=== PATIENT | female | born 1965 | race Caucasian/White ===

== ENCOUNTER 2016-06-24 15:22 | Emergency (ER) | payer BC ==
[2016-06-24 16:56] VITALS: BP 158/89
--- NOTE | 2016-06-24 17:05 | UC ---
Complaint Female HPI - History Of Current Complaint Chief Complaint: UCGU Stated Complaint: URINARY Time Seen by Provider: 06/24/16 16:57 Hx Obtained From: Patient Hx Last Menstrual Period: 2mos. ?: No Onset/Duration: Sudden Onset, Lasting Days - 2, Worse Since - today Severity Initially: Mild Severity Currently: Moderate Character: Cramping Aggravating Factor(s): Urination Associated Signs And Symptoms: Negative: Fever, Nausea, Vomiting(# Of Episodes = ) - Risk Factors Ovarian Torsion Risk Factor: Negative - Allergies/Home Medications Allergies/Adverse Reactions: Allergies Allergy/AdvReac Type Severity Reaction Status Date / Time Erythromycin Allergy Rash Verified 06/24/16 16:56 Indomethacin [From Indocin] Allergy Swelling Verified 06/24/16 16:56 seasonal Allergy Congestion Uncoded 06/24/16 16:56 PMH/Surg Hx/FS Hx/Imm Hx Cardiovascular History Of: Reports: Hypertension - Surgical History Surgical History: Yes Surgery Procedure, Year, and Place: leg veins - Family History Known Family History: Positive: Cardiac Disease, Hypertension, Other - shingles in father, phlebitis in father - Social History Occupation: Employed Full-time Lives: With Family Alcohol Use: Occasionally Substance Use Type: None Smoking Status (MU): Never Smoked Tobacco Have You Smoked in the Last Year: No Review of Systems Constitutional: Chills Gastrointestinal: Abdominal Pain Genitourinary: Dysuria, Frequency, Urgency All Other Systems Reviewed And Are Negative: Yes Physical Exam Triage Information Reviewed: Yes Appearance: No Pain Distress, Well-Nourished, Ill-Appearing Vital Signs: Initial Vital Signs Temp 99.0 F 06/24/16 16:49 Pulse 54 06/24/16 16:49 Resp 18 06/24/16 16:49 BP 158/89 06/24/16 16:49 Pulse Ox 100 06/24/16 16:49 Vital Signs Reviewed: Yes Eyes: Positive: Conjunctiva Clear ENT: Positive: Pharynx normal, TMs normal Neck exam: Normal Respiratory Exam: Normal Cardiovascular Exam: Normal Abdomen Description: Negative: Nontender - mild suprapubic tenderness, CVA Tenderness (R), CVA Tenderness (L) Bowel Sounds: Positive: Present Musculoskeletal Exam: Normal Neurological Exam: Normal Psychological Exam: Normal Skin Exam: Normal Complaint Female Dx - Differential Dx/Diagnosis Differential Diagnosis/HQI/PQRI: Appendicitis, Ovarian Cyst, Urinary Tract Infection Provider Diagnoses: Acute Pyelonephritis Discharge - Discharge Plan Condition: Stable Disposition: HOME Prescriptions: Phenazopyridine HCl [Pyridium] 200 mg PO TID PRN #6 tab PRN Reason: UTI symptoms Sulfamethox/Trimethoprim DS* [Bactrim DS 800/160 TAB*] 1 tab PO BID #20 tab Patient Education Materials: Acute Pyelonephritis (ED), Urinary Tract Infection in Women (ED), Sulfamethoxazole/Trimethoprim (By mouth), Phenazopyridine (By mouth) Additional Instructions: Stackpop[employer] SINUS RINSE: CHECK OUT AT nScaled Saline nasal wash helps with mucous, allergies and congestion. It can be used up to twice a day or only as needed. Use lukewarm tap water. It does not have to be sterilized or distilled water. Do 1/3 on each side and snort out of both nostrils. Repeat the process with 1/6 of the bottle on each side with snorting in between to finish the solution in the bottle
[2016-06-24] MEDS ORDERED: Phenazopyridine TAB* 100 MG PO ONE ×2 (17:07→17:14)
[2016-06-24] MEDS ORDERED: Sulfamethox/Trimethoprim DS 800/160* TAB PO ONE ×2 (17:07→17:13)
== END 2016-06-24 17:27 | disposition home or self-care (01) ==
LOC: UCCORT 15:22
DX: N10 Acute pyelonephritis (principal); Z88.1 Allergy status to other antibiotic agents
CPT/HCPCS: 87077; 87086; 87186; 99213; A9270-GY; G0463

== ENCOUNTER 2018-03-25 15:23 | Emergency (ER) | payer BC ==
[2018-03-25 16:04] VITALS: BP 148/88
--- NOTE | 2018-03-25 16:06 | UC ---
Ear Complaint HPI - HPI Summary HPI Summary: 52 year old female presents with onset of left ear pain this morning that has progressively worsened and now she is also complaining of nasal congestion, left maxillary sinus pain/pressure, and mild sore throat. Denies fever, chills, hearing loss, tinnitus, ear drainage, dysphagia, cough, chest pain, or shortness of breath. - History of Current Complaint Chief Complaint: UCEar Stated Complaint: LT EAR PAIN Time Seen by Provider: 03/25/18 16:05 Hx Obtained From: Patient Hx Last Menstrual Period: n/a Onset/Duration: Gradual Onset, Lasting Hours Severity Currently: Moderate Pain Intensity: 7 Aggravating Factors: Nothing Alleviating Factors: Nothing Associated Signs/Symptoms: Positive: URI Symptoms - Allergies/Home Medications Allergies/Adverse Reactions: Allergies Allergy/AdvReac Type Severity Reaction Status Date / Time erythromycin base Allergy Rash Verified 03/25/18 16:00 indomethacin [From Indocin] Allergy Swelling Verified 03/25/18 16:00 seasonal Allergy Congestion Uncoded 06/24/16 16:56 Home Medications: Home Medications Fluticasone NASAL SPRAY 50MCG* [Flonase NASAL SPRAY 50MCG*] 2 spray BOTH NARES DAILY 03/25/18 [History Confirmed 03/25/18] Olmesartan Medoxomil [Benicar] 5 mg PO DAILY 03/25/18 [History Confirmed ] PMH/Surg Hx/FS Hx/Imm Hx Cardiovascular History: Hypertension - Surgical History Surgical History: Yes Surgery Procedure, Year, and Place: leg veins - Family History Known Family History: Positive: Cardiac Disease, Hypertension, Other - shingles in father, phlebitis in father - Social History Occupation: Employed Full-time Lives: With Family Alcohol Use: Occasionally Substance Use Type: None Smoking Status (MU): Never Smoked Tobacco Have You Smoked in the Last Year: No Review of Systems Constitutional: Negative Skin: Negative Eyes: Negative ENT: Ear Ache, Nasal Discharge, Sinus Pain/Tenderness Respiratory: Negative Cardiovascular: Negative Gastrointestinal: Negative Is Patient Immunocompromised?: No All Other Systems Reviewed And Are Negative: Yes Physical Exam Triage Information Reviewed: Yes Appearance: Well-Appearing, No Pain Distress, Well-Nourished Vital Signs: Initial Vital Signs Temp 98.3 F 03/25/18 15:58 Pulse 62 03/25/18 15:58 Resp 15 03/25/18 15:58 BP 148/88 03/25/18 15:58 Pulse Ox 100 03/25/18 15:58 Eyes: Positive: Conjunctiva Clear. Negative: Discharge ENT: Positive: Hearing grossly normal, Pharyngeal erythema - Mild, Nasal congestion, TMs normal, Sinus tenderness - left maxillary, Uvula midline. Negative: Nasal drainage, Tonsillar swelling, Tonsillar exudate, Trismus, Muffled voice Neck: Positive: Supple, Nontender, No Lymphadenopathy Respiratory: Positive: Lungs clear, Normal breath sounds, No respiratory distress Cardiovascular: Positive: RRR, No Murmur Neurological: Positive: Alert Skin Exam: Normal Ear Complaint Course/Dx - Course Course Of Treatment: 52 year old female with onset of left ear pain that has progressively worsened and now having nasal congestion, left maxillary sinus pain and pressure, and sore throat. Afebrile. Exam consistent with an acute maxillary sinus infection. Likely viral. Recommend symptomatic treatment. She is to follow up with PCP in 7 days if symptoms persist. Warning symptoms reviewed. Verbalizes understanding and agrees with POC. - Differential Dx/Diagnosis Differential Diagnosis/HQI/PQRI: Cerumen Impaction, Otitis Externa, Otitis Media , URI, Other - sinusitis Provider Diagnoses: acute maxillary sinusitis Discharge - Sign-Out/Discharge Documenting (check all that apply): Patient Departure All imaging exams completed and their final reports reviewed: No Studies - Discharge Plan Condition: Stable Disposition: HOME Patient Education Materials: Sinusitis (ED) Referrals: Shruthi Dale MD [Primary Care Provider] - 7 Days (If symptoms persist) Additional Instructions: There was no evidence of an ear infection on your exam. I suspect that your symptoms may be an early sinus infection. These are most often caused by a viral infection. Viral infections do not respond to antibiotics and typically run their course over 7-10 days. Use a saline rinse kit such as Neti Pot or NeilMed at least twice a day. Start fluticasone nasal spray 2 sprays each nostril once a day. Take acetaminophen (Tylenol) or ibuprofen (Advil, Motrin) according to directions as needed for fever or pain. Use salt water gargles several times a day if you have a sore throat. Follow-up with your primary care provider in 7 days if symptoms persist. Seek immediate medical attention if you have a persistent fever greater than 100.5 F despite taking acetaminophen or ibuprofen, you are unable to swallow, has difficulty breathing, or have any worsening of symptoms. - Billing Disposition and Condition Condition: STABLE Disposition: Home
== END 2018-03-25 16:34 | disposition home or self-care (01) ==
LOC: UCCORT 15:23
DX: J01.00 Acute maxillary sinusitis, unspecified (principal); I10 Essential (primary) hypertension; J30.2 Other seasonal allergic rhinitis; Z88.1 Allergy status to other antibiotic agents; Z88.6 Allergy status to analgesic agent
CPT/HCPCS: 99211; G0463